=== PATIENT | female | born 1950 | race Caucasian/White ===

== ENCOUNTER 2019-07-31 06:21 | Emergency (ER) | payer MEDICARE, BC ==
[2019-07-31 06:28] VITALS: BP 176/92; PULSE 112
[2019-07-31] MEDS ORDERED: Sodium Chloride 0.9% 10 ML Syringe FLUSH PRN (06:41)
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
[2019-07-31 07:30] LABS: ANION GAP 13.7 mmol/L (10-20); CHLORIDE,CL 102 mmol/L (98-107); SODIUM,NA 138 mmol/L (136-145)
--- NOTE | 2019-07-31 07:59 | CR ---
[id number] RAD/RAD Knee Left 1-2V EXAM: RAD Knee Left 1-2V CLINICAL DATA: SWELLING AND ERYTHEMA COMPARISON: NO PREVIOUS SIMILAR EXAM IS AVAILABLE. FINDINGS: Diffuse soft tissue swelling is seen The left knee prosthesis appears intact No fracture or dislocation is identified There is no air in the soft tissues There is no plain film evidence of osteomyelitis. IMPRESSION: DIFFUSE SOFT TISSUE SWELLING Bryon Key MD 07/31/19 0758 Thank you for allowing us to participate in the care of your patient.
--- NOTE | 2019-07-31 08:00 | CR ---
[id number] RAD/RAD Chest PA And Lateral EXAM: RAD Chest PA And Lateral CLINICAL DATA: 1 WEEK HISTORY OF COUGH COMPARISON: NO PREVIOUS SIMILAR EXAM IS AVAILABLE. FINDINGS: The lungs are clear The cardiac silhouette is enlarged There is a moderate hiatal hernia Scoliosis is seen There are surgical changes of the right shoulder IMPRESSION: NO ACUTE PROCESS. Bryon Key MD 07/31/19 0759 Thank you for allowing us to participate in the care of your patient.
[2019-07-31] MEDS ORDERED: ceFAZolin 1 GM Vial IVPUSH ONE (08:13)
== END 2019-07-31 08:48 | disposition home or self-care (01) ==
LOC: VM.ED 06:21
DX: J06.9 Acute upper respiratory infection, unspecified (principal); L03.116 Cellulitis of left lower limb; K21.9 Gastro-esophageal reflux disease without esophagitis; Z88.1 Allergy status to other antibiotic agents; Z88.8 Allergy status to other drugs, medicaments and biological substances; Z86.718 Personal history of other venous thrombosis and embolism; Z79.899 Other long term (current) drug therapy; Z79.01 Long term (current) use of anticoagulants
CPT/HCPCS: 36415; 71046; 73560-LT; 80053; 83605; 85025; 85610; 86140; 87040; 87804; 87804-59; 96374; 99283-25; 99283-GF; J0690

== ENCOUNTER 2021-01-20 06:46 | Day surgery (SDC) | payer MEDICARE, BC ==
[2021-01-20] MEDS: Lactated Ringers 1,000 ML IV SCH (08:08)
[2021-01-20] MEDS ORDERED: Propofol 200 MG/20 ML SDV ONE ×4 (08:27→10:34)
[2021-01-20] MEDS ORDERED: fentaNYL 100 MCG/2 ML SDV ONE (08:27)
[2021-01-20 11:22] VITALS: BP 129/59; PULSE 69
--- NOTE | 2021-01-20 11:54 | OR ---
PREOPERATIVE DIAGNOSIS: History of colon polyps. POSTOPERATIVE DIAGNOSIS: Colon polyps. PROCEDURE PERFORMED: Total flexible colonoscopy. ANESTHESIA: MAC anesthesia. COMPLICATIONS: None apparent. BLOOD LOSS: Minimal. FINDINGS: 1. Cecal polyp, 2 mm, cold forceps. 2. Ascending colon polyp, 2 mm, cold forceps. 3. Transverse colon polyp x2, 15 mm, 4 mm, saline lift and hot snare, clip applied x1 to reapproximate mucosa of the large polyp. 4. Sigmoid colon polyp, 3 mm, cold forceps. START TIME: 0958. CECUM TIME: 1028. STOP TIME: 1058. BOWEL PREP: Glendo class 2. INDICATION FOR PROCEDURE: Alannah Dyer is a 71-year-old female who has a history of polyps and a family history of colorectal cancer in her dad in his 60s. She is here for a screening colonoscopy. She currently denies any bloody or dark black stools. DETAILS OF PROCEDURE: Informed consent was obtained. The patient was brought to the procedure room and placed in the left lateral decubitus position. MAC anesthesia was induced by Anesthesia colleagues. Colonoscope was introduced into the rectum and advanced all the way to the cecum. We had a persistent alpha loop in the sigmoid colon which took several attempts to get reduced. We were careful to avoid undue pressure. Once we were ultimately able to get this reduced, the colonoscope was then easily advanced from the splenic flexure to the cecum. The terminal ileum was intubated and photographed. Colonoscope was then slowly withdrawn. No pathology was identified except for what is mentioned in the above findings section. We then performed a retroflexed view and the colonoscope was withdrawn. PATHOLOGY: Recommend repeat screening colonoscopy in 3 years. RKM: 01/20/2021 10:59:41 MODL: 01/20/2021 11:37:25 /[id number]
--- NOTE | 2021-01-20 12:54 | OR ---
PREOPERATIVE DIAGNOSIS: History of peptic ulcer disease. POSTOPERATIVE DIAGNOSIS: Approximately 6 cm sliding hiatal hernia. PROCEDURE PERFORMED: Esophagogastroduodenoscopy with biopsies. ANESTHESIA: MAC anesthesia. COMPLICATIONS: None. BLOOD LOSS: Minimal. FINDINGS: 1. Unremarkable duodenum. 2. Unremarkable stomach. 3. Approximately 6 cm sliding hiatal hernia. 4. Otherwise unremarkable esophagus. 5. Z-line regular at 35 cm. 6. Biopsies were taken with cold forceps of the gastric antrum for H pylori. INDICATION FOR PROCEDURE: Alannah Dyer is a 71-year-old female who has been having some epigastric pain. She reports a history of a bleeding gastric ulcer 3 years ago. She tells me she was recommended to get a repeat upper endoscopy, although it is somewhat unclear precisely why that is. To my knowledge, she does not have a history of Moe's esophagus. At any rate, procedure is warranted given her epigastric pain and history of peptic ulcer disease. DETAILS OF PROCEDURE: Informed consent was obtained. The patient was brought to the procedure room and placed in the left lateral decubitus position. MAC anesthesia was induced by Anesthesia colleagues. A bite block was placed and then the endoscope was introduced into the patient's mouth, down the upper esophageal sphincter, into the stomach and into the duodenum. The endoscope was then withdrawn and a retroflexed view was obtained. We obtained biopsies for H pylori. The endoscope was then slowly withdrawn. Other than the approximately 6 cm hiatal hernia, no additional pathology was identified. PATHOLOGY: RECOMMENDATIONS: RKM: 01/20/2021 10:57:08 MODL: 01/20/2021 11:49:04 /[id number]
== END 2021-01-20 12:30 | disposition home or self-care (01) ==
LOC: VM.SDS 06:46
PROVIDERS: ATTEND Student in an Organized Health Care Education/Training Program
DX: Z12.11 Encounter for screening for malignant neoplasm of colon (principal); D12.0 Benign neoplasm of cecum; D12.2 Benign neoplasm of ascending colon; D12.3 Benign neoplasm of transverse colon; K29.50 Unspecified chronic gastritis without bleeding; K63.5 Polyp of colon; G89.4 Chronic pain syndrome; R30.0 Dysuria; G62.89 Other specified polyneuropathies; S32.402D Unspecified fracture of left acetabulum, subsequent encounter for fracture with routine healing; D50.9 Iron deficiency anemia, unspecified; E55.9 Vitamin D deficiency, unspecified; K44.9 Diaphragmatic hernia without obstruction or gangrene; E66.9 Obesity, unspecified; Z68.37 Body mass index [BMI] 37.0-37.9, adult; Z86.010 Personal history of colon polyps; Z80.0 Family history of malignant neoplasm of digestive organs; Z88.8 Allergy status to other drugs, medicaments and biological substances; Z79.899 Other long term (current) drug therapy; Z87.11 Personal history of peptic ulcer disease; Z98.890 Other specified postprocedural states; X58.XXXD Exposure to other specified factors, subsequent encounter
CPT/HCPCS: 00811; 43239; 45380; 45381; 45385; 88305; 88342; J2704; J3010; J7120

== ENCOUNTER 2021-08-15 12:05 | Inpatient (IN) | payer MEDICARE, BC ==
[2021-08-15] MEDS ORDERED: cefTRIAXone 2 GM Vial IVPUSH ONE (12:30)
[2021-08-15 13:00] LABS: PCO2 ARTERIAL,POC 37 mmHg (35-48)
[2021-08-15 13:11] LABS: PTT,PARTIAL THROMBOPLSTIN TIME 28.2 SEC (20.5-30.9)
[2021-08-15 13:20] LABS: CHLORIDE,CL 103 mmol/L (98-107); SODIUM,NA 142 mmol/L (136-145)
[2021-08-15 13:21] LABS: ANION GAP 14.7 mmol/L (5-15)
[2021-08-15 13:39] LABS: CORONAVIRUS COVID-19 NAA POSITIVE (NEGATIVE); RESPIRATORY SYNCYTIAL VIR NAA NEGATIVE (NEGATIVE)
[2021-08-15] MEDS: Enoxaparin 100 MG/1 ML Syringe SUBCUT SCH (15:31)
[2021-08-15] MEDS ORDERED: Warfarin 5 MG Tab PO ONE (16:28)
[2021-08-15] MEDS ORDERED: Ondansetron 4 MG/2 ML SDV IV PRN (16:30)
[2021-08-15] MEDS ORDERED: Iopamidol 755 Mg/ML 100 ML Bottle IVPUSH ONE (16:48)
[2021-08-15] MEDS ORDERED: Hypromellose 0.3% Ophth Soln 15 ML Bottle EYEBOTH PRN (16:56)
[2021-08-15] MEDS: Magnesium Oxide 400 MG Tab PO SCH (17:24)
[2021-08-15] MEDS: Acetaminophen/HYDROcodone 325-10 MG Tab PO PRN (17:25)
[2021-08-15] MEDS: Omeprazole 20 MG Cap.CR PO SCH (17:25)
[2021-08-15] MEDS: Acetaminophen/HYDROcodone 325-10 MG Tab PO SCH (20:11)
[2021-08-15] MEDS: Penicillin V Potassium 500 MG Tab PO SCH (20:13)
[2021-08-16] MEDS: Enoxaparin 100 MG/1 ML Syringe SUBCUT SCH ×2 (02:39→17:22)
[2021-08-16] MEDS: Acetaminophen 325 MG Tab PO PRN ×3 (02:40→17:23)
[2021-08-16] MEDS: Acetaminophen/HYDROcodone 325-10 MG Tab PO PRN ×2 (02:40→07:50)
[2021-08-16] MEDS: Omeprazole 20 MG Cap.CR PO SCH ×2 (06:28→17:22)
[2021-08-16 07:12] LABS: CHLORIDE,CL 104 mmol/L (98-107); SODIUM,NA 141 mmol/L (136-145)
[2021-08-16 07:22] LABS: ANION GAP 11.6 mmol/L (5-15)
[2021-08-16] MEDS: Penicillin V Potassium 500 MG Tab PO SCH ×2 (07:50→20:29)
[2021-08-16] MEDS: Furosemide 20 MG Tab PO SCH (07:50)
[2021-08-16] MEDS ORDERED: Warfarin 2.5 MG Tab PO ONE (08:30)
[2021-08-16] MEDS: Magnesium Oxide 400 MG Tab PO SCH (08:39)
[2021-08-16] MEDS: Cholecalciferol (Vitamin D3) 25 MCG Tab PO SCH (11:35)
[2021-08-16] MEDS: Acetaminophen/HYDROcodone 325-5 MG Tab PO PRN (17:22)
[2021-08-16] MEDS: Acetaminophen/HYDROcodone 325-10 MG Tab PO SCH (20:31)
[2021-08-16] MEDS: Sodium Chloride 0.9% 10 ML Syringe FLUSH PRN (20:33)
[2021-08-17] MEDS: Acetaminophen/HYDROcodone 325-5 MG Tab PO PRN ×4 (01:06→17:22)
[2021-08-17] MEDS: Omeprazole 20 MG Cap.CR PO SCH ×2 (06:13→17:21)
[2021-08-17] MEDS: Enoxaparin 100 MG/1 ML Syringe SUBCUT SCH ×2 (06:14→17:20)
[2021-08-17] MEDS ORDERED: Warfarin 5 MG Tab PO ONE (07:13)
[2021-08-17] MEDS: Furosemide 20 MG Tab PO SCH (07:50)
[2021-08-17] MEDS: Penicillin V Potassium 500 MG Tab PO SCH ×2 (07:50→19:37)
[2021-08-17] MEDS: Cholecalciferol (Vitamin D3) 25 MCG Tab PO SCH (07:50)
[2021-08-17] MEDS: Acetaminophen 325 MG Tab PO PRN ×2 (07:50→17:21)
[2021-08-17] MEDS: Magnesium Oxide 400 MG Tab PO SCH (07:50)
[2021-08-17] MEDS ORDERED: Bisacodyl 10 MG Supp RECTAL PRN (08:30)
[2021-08-17] MEDS: Acetaminophen/HYDROcodone 325-10 MG Tab PO SCH (19:38)
[2021-08-17] MEDS: Sodium Chloride 0.9% 10 ML Syringe FLUSH PRN (19:44)
[2021-08-18] MEDS: Acetaminophen/HYDROcodone 325-5 MG Tab PO PRN ×3 (04:02→16:37)
[2021-08-18] MEDS: Omeprazole 20 MG Cap.CR PO SCH ×2 (06:20→16:37)
[2021-08-18] MEDS: Enoxaparin 100 MG/1 ML Syringe SUBCUT SCH ×3 (06:22→17:54)
[2021-08-18 07:21] LABS: CHLORIDE,CL 104 mmol/L (98-107); SODIUM,NA 140 mmol/L (136-145)
[2021-08-18] MEDS: Acetaminophen 325 MG Tab PO PRN (07:58)
[2021-08-18] MEDS: Penicillin V Potassium 500 MG Tab PO SCH ×2 (07:58→20:01)
[2021-08-18] MEDS: Furosemide 20 MG Tab PO SCH (07:58)
[2021-08-18] MEDS: Magnesium Oxide 400 MG Tab PO SCH (07:58)
[2021-08-18] MEDS: Cholecalciferol (Vitamin D3) 25 MCG Tab PO SCH (07:58)
[2021-08-18] MEDS: Sodium Chloride 0.9% 10 ML Syringe FLUSH PRN ×2 (08:08→20:07)
[2021-08-18] MEDS ORDERED: Warfarin 2 MG Tab PO ONE (08:27)
[2021-08-18] MEDS: Acetaminophen/HYDROcodone 325-10 MG Tab PO SCH (20:02)
[2021-08-19] MEDS: Enoxaparin 100 MG/1 ML Syringe SUBCUT SCH ×2 (05:58→17:51)
[2021-08-19] MEDS: Omeprazole 20 MG Cap.CR PO SCH ×2 (06:24→17:50)
[2021-08-19] MEDS: Magnesium Oxide 400 MG Tab PO SCH (08:23)
[2021-08-19] MEDS: Acetaminophen/HYDROcodone 325-5 MG Tab PO PRN ×2 (08:23→14:54)
[2021-08-19] MEDS: Penicillin V Potassium 500 MG Tab PO SCH ×2 (08:24→19:36)
[2021-08-19] MEDS: Cholecalciferol (Vitamin D3) 25 MCG Tab PO SCH (08:24)
[2021-08-19] MEDS: Furosemide 20 MG Tab PO SCH (08:25)
[2021-08-19 08:26] LABS: CHLORIDE,CL 103 mmol/L (98-107); SODIUM,NA 140 mmol/L (136-145)
[2021-08-19] MEDS: Acetaminophen/HYDROcodone 325-10 MG Tab PO SCH (19:36)
[2021-08-19] MEDS: Warfarin 5 MG Tab PO SCH (19:37)
[2021-08-20] MEDS: Enoxaparin 100 MG/1 ML Syringe SUBCUT SCH ×2 (05:26→17:45)
[2021-08-20] MEDS: Acetaminophen/HYDROcodone 325-5 MG Tab PO PRN ×3 (05:34→17:46)
[2021-08-20] MEDS: Omeprazole 20 MG Cap.CR PO SCH ×2 (06:18→17:45)
[2021-08-20] MEDS: Penicillin V Potassium 500 MG Tab PO SCH ×2 (08:02→20:17)
[2021-08-20] MEDS: Furosemide 20 MG Tab PO SCH (08:03)
[2021-08-20] MEDS: Cholecalciferol (Vitamin D3) 25 MCG Tab PO SCH (08:03)
[2021-08-20] MEDS: Magnesium Oxide 400 MG Tab PO SCH (08:03)
[2021-08-20] MEDS: Warfarin 5 MG Tab PO SCH (20:17)
[2021-08-20] MEDS: Acetaminophen/HYDROcodone 325-10 MG Tab PO SCH (20:18)
[2021-08-20] MEDS: Sodium Chloride 0.9% 10 ML Syringe FLUSH PRN (20:20)
[2021-08-21] MEDS: Acetaminophen/HYDROcodone 325-5 MG Tab PO PRN ×2 (02:39→08:47)
[2021-08-21 02:47] VITALS: PULSE 84
[2021-08-21] MEDS: Enoxaparin 100 MG/1 ML Syringe SUBCUT SCH (06:05)
[2021-08-21] MEDS: Omeprazole 20 MG Cap.CR PO SCH (06:05)
[2021-08-21 07:23] LABS: CHLORIDE,CL 102 mmol/L (98-107); SODIUM,NA 139 mmol/L (136-145)
[2021-08-21 07:27] LABS: ANION GAP 8.8 mmol/L (5-15)
[2021-08-21] MEDS: Magnesium Oxide 400 MG Tab PO SCH (08:46)
[2021-08-21] MEDS: Penicillin V Potassium 500 MG Tab PO SCH (08:47)
[2021-08-21] MEDS: Cholecalciferol (Vitamin D3) 25 MCG Tab PO SCH (08:47)
[2021-08-21] MEDS: Furosemide 20 MG Tab PO SCH (08:47)
[2021-08-21 09:54] VITALS: BP 140/66
[2021-08-21] MEDS ORDERED: Warfarin 2.5 MG Tab PO ONE (20:00)
== END 2021-08-21 14:00 | disposition home or self-care (01) | DRG 175 ==
LOC: VM.ED 12:05 → VM.MS 15:34
PROVIDERS: ADMIT Internal Medicine; ATTEND Internal Medicine
DX: I26.99 Other pulmonary embolism without acute cor pulmonale (principal); J96.01 Acute respiratory failure with hypoxia; U07.1 COVID-19; J12.82 Pneumonia due to coronavirus disease 2019; U09.9 Post COVID-19 condition, unspecified; E66.9 Obesity, unspecified; K29.70 Gastritis, unspecified, without bleeding; K44.9 Diaphragmatic hernia without obstruction or gangrene; G89.29 Other chronic pain; G62.9 Polyneuropathy, unspecified; I10 Essential (primary) hypertension; K21.9 Gastro-esophageal reflux disease without esophagitis; Z86.16 Personal history of COVID-19; K59.09 Other constipation; D64.9 Anemia, unspecified; E55.9 Vitamin D deficiency, unspecified; Z96.649 Presence of unspecified artificial hip joint; Z96.659 Presence of unspecified artificial knee joint; H04.123 Dry eye syndrome of bilateral lacrimal glands; Z79.899 Other long term (current) drug therapy; Z88.6 Allergy status to analgesic agent; Z88.8 Allergy status to other drugs, medicaments and biological substances; Z90.710 Acquired absence of both cervix and uterus; Z86.718 Personal history of other venous thrombosis and embolism; Z79.01 Long term (current) use of anticoagulants; Z90.49 Acquired absence of other specified parts of digestive tract; Z98.49 Cataract extraction status, unspecified eye; Z88.1 Allergy status to other antibiotic agents
CPT/HCPCS: 0241U; 36415; 36600; 71045; 71275; 80048; 80053; 80069; 81001; 82803; 83605; 83735; 83880; 84100; 84484; 85025; 85379; 85610; 85730; 86140; 87040; 93005; 93010; 96374; 97163-GP; 99284; 99285-25; A9270-GY; J0696; J1650; Q9967

== ENCOUNTER 2021-09-12 20:49 | Emergency (ER) | payer MEDICARE, BC ==
[2021-09-12 21:33] LABS: CHLORIDE,CL 103 mmol/L (98-107); SODIUM,NA 141 mmol/L (136-145)
[2021-09-12 21:37] VITALS: BP 137/66; PULSE 79
== END 2021-09-12 21:50 | disposition home or self-care (01) ==
LOC: VM.ED 20:49
DX: F41.9 Anxiety disorder, unspecified (principal); K21.9 Gastro-esophageal reflux disease without esophagitis; E66.9 Obesity, unspecified; Z68.32 Body mass index [BMI] 32.0-32.9, adult; Z88.8 Allergy status to other drugs, medicaments and biological substances; Z79.899 Other long term (current) drug therapy; Z79.01 Long term (current) use of anticoagulants
CPT/HCPCS: 71046; 80053; 82550; 83615; 83880; 84484; 85025; 85610; 86140; 93005; 93010; 99284; 99284-25

== ENCOUNTER 2021-11-05 00:50 | Emergency (ER) | payer MEDICARE, BC ==
[2021-11-05] MEDS ORDERED: Sodium Chloride 0.9% 10 ML Syringe FLUSH PRN (01:06)
[2021-11-05] MEDS ORDERED: Ketorolac 15 MG/ML SDV IVPUSH ONE (01:08)
[2021-11-05] MEDS ORDERED: HYDROmorphone 0.5 MG/0.5 ML Syringe IVPUSH ONE (01:08)
[2021-11-05 01:23] VITALS: BP 140/68
[2021-11-05 01:56] LABS: CHLORIDE,CL 102 mmol/L (98-107); PTT,PARTIAL THROMBOPLSTIN TIME 35.4 SEC (20.5-30.9); SODIUM,NA 140 mmol/L (136-145)
[2021-11-05 02:04] LABS: ANION GAP 13.6 mmol/L (5-15)
[2021-11-05 05:20] VITALS: PULSE 78
== END 2021-11-05 02:40 | disposition home or self-care (01) ==
LOC: VM.ED 00:50
DX: K80.20 Calculus of gallbladder without cholecystitis without obstruction (principal); K21.9 Gastro-esophageal reflux disease without esophagitis; E66.9 Obesity, unspecified; Z88.1 Allergy status to other antibiotic agents; Z88.8 Allergy status to other drugs, medicaments and biological substances; Z79.899 Other long term (current) drug therapy; Z79.01 Long term (current) use of anticoagulants; Z68.28 Body mass index [BMI] 28.0-28.9, adult
CPT/HCPCS: 80053; 82150; 83690; 85025; 85610; 85730; 86140; 96374; 96375; 99284; 99284-25; J1170; J1885

== ENCOUNTER 2023-03-24 07:40 | Emergency (ER) | payer MEDICARE, BC ==
[2023-03-24] MEDS ORDERED: cloNIDine 0.1 MG Tab PO ONE (08:04)
[2023-03-24 08:42] LABS: BASOPHILS PERCENT AUTO 0.3 % (0.2-1.2); EOSINOPHILS ABSOLUTE AUTO 0.1 x10^3/uL (0.0-0.5); EOSINOPHILS PERCENT AUTO 2.3 % (0.0-4.0); HEMATOCRIT 39.5 % (33.0-47.0); HEMOGLOBIN 12.7 g/dL (12.0-16.0); LYMPHOCYTES ABSOLUTE AUTO 1.1 x10^3/uL (1.0-4.8); LYMPHOCYTES PERCENT AUTO 27.7 % (25.0-50.0); MEAN CORPUSCULAR HEMOGLOBIN 28.7 pg (26.0-32.0); MEAN CORPUSCULAR HGB CONC 32.2 g/dL (32.0-36.0); MEAN CORPUSCULAR VOLUME 89.4 fL (78.0-93.0); MONOCYTES ABSOLUTE AUTO 0.5 x10^3/uL (0.0-0.8); MONOCYTES PERCENT AUTO 11.5 % (2.0-11.0); NEUTROPHILS ABSOLUTE AUTO 2.3 x10^3/uL (1.8-7.7); NEUTROPHILS PERCENT AUTO 58.2 % (50.0-80.0); PLATELET COUNT,PLT 175 x10^3/uL (130-400); RED BLOOD CELL COUNT 4.42 x10^6/uL (4.00-5.50); WHITE BLOOD CELL COUNT,WBC 3.9 x10^3/uL (4.0-10.0)
[2023-03-24 09:06] LABS: A/G RATIO 0.94; ALBUMIN 3.3 g/dL (3.4-5.0); ANION GAP 12.5 mmol/L (5-15); BILIRUBIN TOTAL 0.4 mg/dL (0.2-1.0); CALCIUM 8.6 mg/dL (8.5-10.1); CREATININE 0.6 mg/dL (0.55-1.02); EST CRCL DRUG DOSING (CG) 75.84 mL/min; POTASSIUM,K 3.5 mmol/L (3.5-5.1); PROTEIN TOTAL,TP 6.8 g/dL (6.4-8.2)
[2023-03-24 09:19] VITALS: PULSE 69
[2023-03-24] MEDS ORDERED: Lisinopril 5 MG Tab PO ONE (09:29)
[2023-03-24 09:40] VITALS: BP 120/62
== END 2023-03-24 09:50 | disposition home or self-care (01) ==
LOC: VM.ED 07:40
DX: I10 Essential (primary) hypertension (principal); K21.9 Gastro-esophageal reflux disease without esophagitis; E66.9 Obesity, unspecified; Z68.37 Body mass index [BMI] 37.0-37.9, adult; Z86.16 Personal history of COVID-19; Z88.8 Allergy status to other drugs, medicaments and biological substances; Z88.1 Allergy status to other antibiotic agents; Z79.899 Other long term (current) drug therapy
CPT/HCPCS: 36415; 70450; 80053; 84484; 85025; 93005; 99284; A9270

== ENCOUNTER 2024-04-23 07:35 | Day surgery (SDC) | payer MEDICARE, BC ==
[2024-04-23] MEDS: Lactated Ringers 1,000 ML IV SCH (07:53)
[2024-04-23] MEDS ORDERED: Propofol 200 MG/20 ML SDV ONE ×2 (08:27→09:51)
[2024-04-23] MEDS ORDERED: fentaNYL 100 MCG/2 ML SDV ONE (08:28)
[2024-04-23 10:35] VITALS: BP 133/53; PULSE 72
== END 2024-04-23 11:40 | disposition home or self-care (01) ==
LOC: VM.SDS 07:35
PROVIDERS: ATTEND Family Medicine
DX: Z12.11 Encounter for screening for malignant neoplasm of colon (principal); D12.0 Benign neoplasm of cecum; D12.6 Benign neoplasm of colon, unspecified; K63.5 Polyp of colon; K57.30 Diverticulosis of large intestine without perforation or abscess without bleeding; Z86.0100 Personal history of colon polyps, unspecified; Z88.6 Allergy status to analgesic agent; Z88.8 Allergy status to other drugs, medicaments and biological substances
CPT/HCPCS: 00811; 88305; 99100; J2704; J3010; J7120

== ENCOUNTER 2024-07-07 17:40 | Emergency (ER) | payer MEDICARE, BC ==
[2024-07-07 18:21] LABS: BASOPHILS PERCENT AUTO 0.2 % (0.2-1.2); EOSINOPHILS ABSOLUTE AUTO 0.1 x10^3/uL (0.0-0.5); EOSINOPHILS PERCENT AUTO 1.6 % (0.0-4.0); HEMATOCRIT 39.5 % (33.0-47.0); IMMATURE GRAN ABSOLUTE AUTO 0.01 x10^3/uL (0.00-0.07); LYMPHOCYTES ABSOLUTE AUTO 1.2 x10^3/uL (1.0-4.8); LYMPHOCYTES PERCENT AUTO 22.5 % (25.0-50.0); MEAN CORPUSCULAR HEMOGLOBIN 29.3 pg (26.0-32.0); MEAN CORPUSCULAR HGB CONC 32.9 g/dL (32.0-36.0); MONOCYTES ABSOLUTE AUTO 0.6 x10^3/uL (0.0-0.8); NEUTROPHILS ABSOLUTE AUTO 3.6 x10^3/uL (1.8-7.7); NEUTROPHILS PERCENT AUTO 65.5 % (50.0-80.0); PLATELET COUNT,PLT 169 x10^3/uL (130-400); RED BLOOD CELL COUNT 4.44 x10^6/uL (4.00-5.50); WHITE BLOOD CELL COUNT,WBC 5.5 x10^3/uL (4.0-10.0)
[2024-07-07 18:35] LABS: ALBUMIN 3.7 g/dL (3.4-5.0); BILIRUBIN TOTAL 0.2 mg/dL (0.2-1.0); CALCIUM 9.1 mg/dL (8.5-10.1); CREATININE 0.8 mg/dL (0.55-1.02); EST CRCL DRUG DOSING (CG) 58.18 mL/min; PROTEIN TOTAL,TP 7.4 g/dL (6.4-8.2)
[2024-07-07 20:27] VITALS: BP 164/87; PULSE 85
== END 2024-07-07 19:16 | disposition home or self-care (01) ==
LOC: VM.ED 17:40
DX: I10 Essential (primary) hypertension (principal); T45.1X5A Adverse effect of antineoplastic and immunosuppressive drugs, initial encounter; B37.89 Other sites of candidiasis; K21.9 Gastro-esophageal reflux disease without esophagitis; E66.9 Obesity, unspecified; Z68.35 Body mass index [BMI] 35.0-35.9, adult; Z86.16 Personal history of COVID-19; Z88.6 Allergy status to analgesic agent; Z88.1 Allergy status to other antibiotic agents; Z88.8 Allergy status to other drugs, medicaments and biological substances; Z79.01 Long term (current) use of anticoagulants; Z79.899 Other long term (current) drug therapy
CPT/HCPCS: 36415; 80053; 85025; 93005; 93010; 99283; 99284

== ENCOUNTER 2024-10-21 22:10 | Emergency (ER) | payer MEDICARE, BC ==
[2024-10-21 22:37] VITALS: BP 170/89; PULSE 89
== END 2024-10-21 22:52 | disposition home or self-care (01) ==
LOC: VM.ED 22:10
DX: K08.89 Other specified disorders of teeth and supporting structures (principal); Z88.1 Allergy status to other antibiotic agents; Z88.8 Allergy status to other drugs, medicaments and biological substances; Z88.6 Allergy status to analgesic agent; Z79.899 Other long term (current) drug therapy; Z88.0 Allergy status to penicillin; Z79.01 Long term (current) use of anticoagulants
CPT/HCPCS: 99283